=== PATIENT | female | born 1940 | race Caucasian/White ===

== ENCOUNTER → 2021-03-26 | Outpatient (CLI) | payer MEDICARE, MEDICAID ==
[2016-06-10 16:40] VITALS: BP 145/76
[~2021-03-26] MED LIST: CITALOPRAM20 MG PO; CLONIDINE0.1 MG PO; LISINOPRIL10 MG PO; LISINOPRIL20 MG PO; LOPRESSOR 550 MG/TAB PO; LOPRESSOR50 MG PO; MACRODANTIN100 M1 PO; METFORMIN PO; METFORMIN1000 MG PO; ST. JOSEPH81 M2 PO
[2021-03-26 09:21] LABS: URINE APPEARANCE HAZY; URINE BILIRUBIN NEGATIVE (NEGATIVE); URINE BLOOD TRACE (NEGATIVE); URINE COLOR YELLOW; URINE GLUCOSE NEGATIVE (NEGATIVE); URINE KETONE NEGATIVE (NEGATIVE); URINE LEUKOCYTE ESTERASE 2+ (NEGATIVE); URINE MUCUS PRESENT (NOT PRESENT); URINE NITRATE NEGATIVE (NEGATIVE); URINE PROTEIN(semi-quant) 1+ mg/dL (NEGATIVE); URINE UROBILINOGEN NORMAL (NORMAL)
== END ==
LOC: LAB 09:11
PROVIDERS: Family Medicine
DX: R82.90 Unspecified abnormal findings in urine (principal)

== ENCOUNTER → 2021-03-27 | Outpatient (CLI) | payer MEDICARE, MEDICAID ==
[2016-06-10 16:40] VITALS: BP 145/76
[2021-03-27 12:56] LABS: BASO # 0.03 (0.02-0.10); EOS % 1.3 % (1.0-5.0); HEMATOCRIT 38.5 % (37.0-47.0); HEMOGLOBIN 12.6 g/dL (12.5-16.0); LYMPH# 2.56 (1.50-4.00); MEAN CELL VOLUME 93 fl (78-100); MEAN CORPUSCULAR HEMOGLOBIN 30 pg (27-31); MEAN CORPUSCULAR HGB CONC 33 g/dL (33-37); MONO # 0.66 (0.20-0.80); NEU # 4.16 (1.40-6.50); PLATELET COUNT 173 K/mm3 (130-400); RED BLOOD COUNT 4.16 M/mm3 (4.10-5.30); RED CELL DISTRIBUTION WIDTH 12.8 % (11.5-14.5); WHITE BLOOD COUNT 7.5 K/mm3 (4.8-10.8)
[2021-03-27 13:08] LABS: ALBUMIN 4.3 g/dL (3.4-4.8); POTASSIUM 4.8 mmol/L (3.5-5.1)
[2021-03-27 13:09] LABS: CALCIUM 9.9 mg/dL (8.3-10.5)
[2021-03-27 13:11] LABS: TOTAL PROTEIN 7.2 g/dL (6.2-8.1)
[2021-03-27 13:13] LABS: TOTAL BILIRUBIN 0.5 mg/dL (0.2-1.2)
== END ==
LOC: LAB 12:35
PROVIDERS: Family Medicine
DX: E11.9 Type 2 diabetes mellitus without complications (principal); R42 Dizziness and giddiness

== ENCOUNTER 2021-04-04 14:00 | Outpatient (RCR) | payer MEDICARE, MEDICAID ==
[2016-06-10 16:40] VITALS: BP 145/76
== END 2021-04-04 17:00 ==
LOC: SPEECH 14:00
DX: G30.9 Alzheimer's disease, unspecified (principal); R13.10 Dysphagia, unspecified

== ENCOUNTER → 2021-04-11 | Outpatient (CLI) | payer MEDICARE, MEDICAID ==
[2016-06-10 16:40] VITALS: BP 145/76
== END ==
LOC: LAB 10:11
DX: R19.7 Diarrhea, unspecified (principal)

== ENCOUNTER → 2021-04-18 | Outpatient (CLI) | payer MEDICARE, MEDICAID ==
[2021-04-18 10:55] LABS: POTASSIUM 4.1 mmol/L (3.5-5.1)
[2021-04-18 10:57] LABS: CALCIUM 9.1 mg/dL (8.3-10.5)
== END ==
LOC: LAB 10:30
PROVIDERS: Family Medicine
DX: E11.9 Type 2 diabetes mellitus without complications (principal)

== ENCOUNTER 2021-11-25 10:48 | Emergency (ER) | payer MEDICARE, MEDICAID ==
[2021-11-25] MEDS ORDERED: ATORVASTATIN CA40 MG PO (11:06)
[2021-11-25] MEDS ORDERED: CARVEDILOL6.25 MG PO (11:06)
[2021-11-25] MEDS ORDERED: OLANZAPINE5 M3 PO (11:07)
[2021-11-25] MEDS ORDERED: ESCITALOPRAM20 MG PO (11:07)
[2021-11-25] MEDS ORDERED: LEVEMIR FLEX100 U/ML SQ (11:07)
[2021-11-25] MEDS ORDERED: CLOPIDOGREL75 M2 PO (11:07)
[2021-11-25 12:12] LABS: ALBUMIN 4.2 g/dL (3.4-4.8); POTASSIUM 4.2 mmol/L (3.5-5.1)
[2021-11-25 12:14] LABS: TOTAL PROTEIN 6.9 g/dL (6.2-8.1)
[2021-11-25 12:16] LABS: TOTAL BILIRUBIN 0.7 mg/dL (0.2-1.2)
[2021-11-25 12:21] LABS: BASO # 0.03 K/mm3 (0.02-0.10); EOS # 0.11 K/mm3 (0.04-0.40); EOS % 1.4 % (1.0-5.0); HEMATOCRIT 36.8 % (37.0-47.0); HEMOGLOBIN 11.9 g/dL (12.5-16.0); LYMPH# 1.65 K/mm3 (1.50-4.00); MEAN CELL VOLUME 95 fl (78-100); MEAN CORPUSCULAR HEMOGLOBIN 31 pg (27-31); MEAN CORPUSCULAR HGB CONC 32 g/dL (33-37); MEAN PLATELET VOLUME 11.5 fl (7.4-10.4); NEU # 5.39 K/mm3 (1.40-6.50); PLATELET COUNT 175 K/mm3 (130-400); RED BLOOD COUNT 3.89 M/mm3 (4.10-5.30); RED CELL DISTRIBUTION WIDTH 14.5 % (11.5-14.5); WHITE BLOOD COUNT 7.9 K/mm3 (4.8-10.8)
[2021-11-25 13:26] LABS: URINE APPEARANCE CLEAR; URINE BILIRUBIN NEGATIVE (NEGATIVE); URINE BLOOD NEGATIVE (NEGATIVE); URINE COLOR YELLOW; URINE GLUCOSE NEGATIVE (NEGATIVE); URINE KETONE NEGATIVE (NEGATIVE); URINE LEUKOCYTE ESTERASE NEGATIVE (NEGATIVE); URINE MUCUS PRESENT (NOT PRESENT); URINE NITRATE NEGATIVE (NEGATIVE); URINE PROTEIN(semi-quant) 2+ (NEGATIVE); URINE UROBILINOGEN NORMAL (NORMAL)
[2021-11-25] MEDS ORDERED: NYSTATIN POWDER30 GM TOP (14:49)
[2021-11-25 17:46] VITALS: BP 170/85
== END 2021-11-25 16:00 | disposition home or self-care (01) ==
LOC: ED 10:48
PROVIDERS: Nurse Practitioner
DX: B37.2 Candidiasis of skin and nail (principal); I12.9 Hypertensive chronic kidney disease with stage 1 through stage 4 chronic kidney disease, or unspecified chronic kidney disease; N18.4 Chronic kidney disease, stage 4 (severe); F41.9 Anxiety disorder, unspecified; G30.9 Alzheimer's disease, unspecified; E11.22 Type 2 diabetes mellitus with diabetic chronic kidney disease; Z79.899 Other long term (current) drug therapy; Z79.02 Long term (current) use of antithrombotics/antiplatelets; Z79.4 Long term (current) use of insulin
CPT/HCPCS: J7040

== ENCOUNTER → 2022-03-27 | Outpatient (CLI) | payer MEDICARE, MEDICAID ==
[~2022-03-27] MED LIST changes: +ATORVASTATIN CA40 MG PO; +CARVEDILOL6.25 MG PO; +CLOPIDOGREL75 M2 PO; +ESCITALOPRAM20 MG PO; +LEVEMIR FLEX100 U/ML SQ; +NYSTATIN POWDER30 GM TOP; +OLANZAPINE5 M3 PO
[2022-03-27 10:29] LABS: ALBUMIN 4.1 g/dL (3.4-4.8); POTASSIUM 4.6 mmol/L (3.5-5.1)
[2022-03-27 10:31] LABS: CALCIUM 9.7 mg/dL (8.3-10.5)
[2022-03-27 10:32] LABS: TOTAL PROTEIN 7.1 g/dL (6.2-8.1)
[2022-03-27 10:34] LABS: TOTAL BILIRUBIN 0.4 mg/dL (0.2-1.2)
== END ==
LOC: LAB 09:51
PROVIDERS: Family Medicine
DX: I12.9 Hypertensive chronic kidney disease with stage 1 through stage 4 chronic kidney disease, or unspecified chronic kidney disease (principal); E11.22 Type 2 diabetes mellitus with diabetic chronic kidney disease; N18.4 Chronic kidney disease, stage 4 (severe); Z86.73 Personal history of transient ischemic attack (TIA), and cerebral infarction without residual deficits; E78.00 Pure hypercholesterolemia, unspecified

== ENCOUNTER 2022-05-06 13:05 | Observation (INO) | payer MEDICARE, MEDICAID ==
[~2022-05-06] VITALS: Ht 167.6 cm; Wt 82.1 kg
[2022-05-06] MEDS ORDERED: OLANZAPINE2.5 M1 PO (14:29)
[2022-05-06] MEDS ORDERED: LEVEMIR FLEX100 U/ML SQ (14:29)
[2022-05-06] MEDS ORDERED: CARVEDILOL3.125 MG PO (14:31)
[2022-05-06] MEDS ORDERED: CLONAZEPAM0.5 M1 PO (14:32)
[2022-05-06 14:37] LABS: BASO # 0.03 K/mm3 (0.02-0.10); EOS # 0.15 K/mm3 (0.04-0.40); EOS % 2.1 % (1.0-5.0); HEMATOCRIT 38.1 % (37.0-47.0); HEMOGLOBIN 12.4 g/dL (12.5-16.0); LYMPH# 2.67 K/mm3 (1.50-4.00); MEAN CELL VOLUME 91 fl (78-100); MEAN CORPUSCULAR HEMOGLOBIN 30 pg (27-31); MEAN CORPUSCULAR HGB CONC 33 g/dL (33-37); MEAN PLATELET VOLUME 10.5 fl (7.4-10.4); MONO # 0.66 K/mm3 (0.20-0.80); NEU # 3.68 K/mm3 (1.40-6.50); PLATELET COUNT 183 K/mm3 (130-400); RED CELL DISTRIBUTION WIDTH 13.7 % (11.5-14.5); WHITE BLOOD COUNT 7.2 K/mm3 (4.8-10.8)
[2022-05-06 14:49] LABS: ALBUMIN 4.2 g/dL (3.4-4.8); POTASSIUM 4.8 mmol/L (3.5-5.1); SODIUM 140 mmol/L (136-145)
[2022-05-06 14:50] LABS: CALCIUM 9.8 mg/dL (8.3-10.5)
[2022-05-06 14:51] LABS: GLUCOSE 147 mg/dL (65-105)
[2022-05-06 14:52] LABS: TOTAL PROTEIN 7.1 g/dL (6.2-8.1)
[2022-05-06 14:53] LABS: CARBON DIOXIDE 23 mmol/L (23-31); TOTAL BILIRUBIN 0.5 mg/dL (0.2-1.2)
[2022-05-06 14:57] LABS: AST-SGOT 18 U/L (5-34)
[2022-05-06 14:58] LABS: ALT/SGPT 11 U/L (0-55)
[2022-05-06 15:05] LABS: TROPONIN-I < 0.030 ng/mL (<0.030)
[2022-05-06 15:40] LABS: URINE APPEARANCE CLEAR; URINE BILIRUBIN NEGATIVE (NEGATIVE); URINE BLOOD TRACE (NEGATIVE); URINE COLOR YELLOW; URINE GLUCOSE NEGATIVE (NEGATIVE); URINE KETONE NEGATIVE (NEGATIVE); URINE LEUKOCYTE ESTERASE 2+ (NEGATIVE); URINE NITRATE NEGATIVE (NEGATIVE); URINE PROTEIN(semi-quant) 1+ (NEGATIVE); URINE UROBILINOGEN NORMAL (NORMAL)
[2022-05-06 15:41] LABS: URINE MUCUS PRESENT (NOT PRESENT)
[2022-05-06 17:00] VITALS: BP 188/82
[2022-05-06 18:13] VITALS: BP 154/77
[2022-05-06 21:42] VITALS: BP 171/73
[2022-05-07 06:47] VITALS: BP 161/90
[2022-05-07 07:22] LABS: BASO # 0.03 K/mm3 (0.02-0.10); EOS # 0.15 K/mm3 (0.04-0.40); EOS % 2.2 % (1.0-5.0); HEMATOCRIT 38.3 % (37.0-47.0); HEMOGLOBIN 12.5 g/dL (12.5-16.0); LYMPH# 2.62 K/mm3 (1.50-4.00); MEAN CELL VOLUME 91 fl (78-100); MEAN CORPUSCULAR HEMOGLOBIN 30 pg (27-31); MEAN CORPUSCULAR HGB CONC 33 g/dL (33-37); MEAN PLATELET VOLUME 10.8 fl (7.4-10.4); MONO # 0.71 K/mm3 (0.20-0.80); NEU # 3.24 K/mm3 (1.40-6.50); PLATELET COUNT 176 K/mm3 (130-400); RED CELL DISTRIBUTION WIDTH 13.9 % (11.5-14.5); WHITE BLOOD COUNT 6.8 K/mm3 (4.8-10.8)
[2022-05-07 07:30] LABS: ALBUMIN 3.9 g/dL (3.4-4.8)
[2022-05-07 07:31] LABS: POTASSIUM 4.7 mmol/L (3.5-5.1)
[2022-05-07 07:32] LABS: CALCIUM 9.5 mg/dL (8.3-10.5)
[2022-05-07 07:33] LABS: TOTAL PROTEIN 6.7 g/dL (6.2-8.1)
[2022-05-07 07:35] LABS: TOTAL BILIRUBIN 0.5 mg/dL (0.2-1.2)
[2022-05-07 10:00] VITALS: BP 147/83
[2022-05-07] MEDS ORDERED: CEPHALEXIN500 M2 PO (13:03)
[2022-05-07 13:24] VITALS: BP 147/83
== END 2022-05-07 13:45 ==
LOC: ED 13:05 → MED/SURG 17:04
PROVIDERS: Internal Medicine; ADMIT Physician Assistant
DX: R45.1 Restlessness and agitation (principal); F30.9 Manic episode, unspecified; E11.22 Type 2 diabetes mellitus with diabetic chronic kidney disease; I12.9 Hypertensive chronic kidney disease with stage 1 through stage 4 chronic kidney disease, or unspecified chronic kidney disease; N39.0 Urinary tract infection, site not specified; N18.9 Chronic kidney disease, unspecified; Z79.4 Long term (current) use of insulin
CPT/HCPCS: G0378; J0696; J1815

== ENCOUNTER 2022-05-20 21:00 | Observation (INO) | payer MEDICARE, MEDICAID ==
[~2022-05-20] VITALS: Ht 167.6 cm; Wt 76.6 kg
[~2022-05-20 21:00] MED LIST changes: +CARVEDILOL3.125 MG PO; +CEPHALEXIN500 M2 PO; +CLONAZEPAM0.5 M1 PO; +OLANZAPINE2.5 M1 PO
[2022-05-20 23:05] LABS: BASO # 0.04 K/mm3 (0.02-0.10); EOS # 0.17 K/mm3 (0.04-0.40); HEMATOCRIT 36.1 % (37.0-47.0); HEMOGLOBIN 11.7 g/dL (12.5-16.0); LYMPH# 2.87 K/mm3 (1.50-4.00); MEAN CELL VOLUME 93 fl (78-100); MEAN CORPUSCULAR HEMOGLOBIN 30 pg (27-31); MEAN CORPUSCULAR HGB CONC 32 g/dL (33-37); MEAN PLATELET VOLUME 10.9 fl (7.4-10.4); MONO # 0.86 K/mm3 (0.20-0.80); NEU # 4.74 K/mm3 (1.40-6.50); PLATELET COUNT 183 K/mm3 (130-400); RED BLOOD COUNT 3.89 M/mm3 (4.10-5.30); RED CELL DISTRIBUTION WIDTH 14.2 % (11.5-14.5); WHITE BLOOD COUNT 8.7 K/mm3 (4.8-10.8)
[2022-05-20 23:15] LABS: POTASSIUM 4.4 mmol/L (3.5-5.1); SODIUM 139 mmol/L (136-145)
[2022-05-20 23:16] LABS: CALCIUM 9.7 mg/dL (8.3-10.5)
[2022-05-20 23:17] LABS: GLUCOSE 142 mg/dL (65-105); TOTAL PROTEIN 7.2 g/dL (6.2-8.1)
[2022-05-20 23:18] LABS: CARBON DIOXIDE 23 mmol/L (23-31)
[2022-05-20 23:19] LABS: TOTAL BILIRUBIN 0.7 mg/dL (0.2-1.2)
[2022-05-20 23:22] LABS: AST-SGOT 18 U/L (5-34)
[2022-05-20 23:24] LABS: ACETAMINOPHEN < 1 ug/mL; ALCOHOL IN-HOUSE < 10 mg/dL (<10); ALT/SGPT < 6 U/L (0-55)
[2022-05-21] MEDS ORDERED: RISPERIDONE1 M2 PO (00:56)
[2022-05-21 09:38] LABS: URINE APPEARANCE CLOUDY; URINE COLOR YELLOW
[2022-05-21 09:39] LABS: URINE BILIRUBIN NEGATIVE (NEGATIVE); URINE BLOOD TRACE (NEGATIVE); URINE GLUCOSE NEGATIVE (NEGATIVE); URINE KETONE NEGATIVE (NEGATIVE); URINE LEUKOCYTE ESTERASE 2+ (NEGATIVE); URINE MUCUS PRESENT (NOT PRESENT); URINE NITRATE NEGATIVE (NEGATIVE); URINE PROTEIN(semi-quant) 1+ (NEGATIVE); URINE UROBILINOGEN NORMAL (NORMAL); URINE WBC >50 /hpf (0-3)
[2022-05-21 15:58] VITALS: BP 93/58
[2022-05-21 16:01] VITALS: BP 92/57
[2022-05-21 17:46] VITALS: BP 93/58
[2022-05-21 23:16] VITALS: BP 109/66
[2022-05-22 06:47] VITALS: BP 152/75
[2022-05-22 09:32] VITALS: BP 126/69
[2022-05-22 14:11] VITALS: BP 107/67
[2022-05-22 18:25] VITALS: BP 94/60
[2022-05-22 21:05] VITALS: BP 162/78
[2022-05-23 06:22] VITALS: BP 103/63
[2022-05-23 10:32] VITALS: BP 116/70
[2022-05-23 14:09] VITALS: BP 128/74
[2022-05-23 17:03] VITALS: BP 150/79
[2022-05-23 21:43] VITALS: BP 147/77
[2022-05-24 05:20] VITALS: BP 116/75
[2022-05-24 09:43] VITALS: BP 142/83
[2022-05-24 13:18] VITALS: BP 152/61
[2022-05-24 17:25] VITALS: BP 127/73
[2022-05-24 21:11] VITALS: BP 119/69
[2022-05-25 05:21] VITALS: BP 155/80
[2022-05-25 06:45] LABS: URINE APPEARANCE CLEAR; URINE BILIRUBIN NEGATIVE (NEGATIVE); URINE BLOOD NEGATIVE (NEGATIVE); URINE COLOR YELLOW; URINE GLUCOSE NEGATIVE (NEGATIVE); URINE KETONE NEGATIVE (NEGATIVE); URINE LEUKOCYTE ESTERASE NEGATIVE (NEGATIVE); URINE NITRATE NEGATIVE (NEGATIVE); URINE PROTEIN(semi-quant) NEGATIVE (NEGATIVE); URINE UROBILINOGEN NORMAL (NORMAL); URINE WBC 0-1 /hpf (0-3)
[2022-05-25 09:21] VITALS: BP 115/72
[2022-05-25 13:51] VITALS: BP 110/69
[2022-05-25 17:56] VITALS: BP 104/59
[2022-05-26 06:00] VITALS: BP 135/68
[2022-05-26 09:47] VITALS: BP 144/78
[2022-05-26 13:46] VITALS: BP 116/72
[2022-05-26 17:34] VITALS: BP 90/56
[2022-05-26 17:55] VITALS: BP 98/52
[2022-05-26 21:40] VITALS: BP 133/73
[2022-05-27 05:47] VITALS: BP 132/75
[2022-05-27 09:17] VITALS: BP 98/54
[2022-05-27 11:32] LABS: BASO # 0.04 K/mm3 (0.02-0.10); EOS # 0.38 K/mm3 (0.04-0.40); HEMATOCRIT 34.6 % (37.0-47.0); HEMOGLOBIN 11.1 g/dL (12.5-16.0); LYMPH# 1.91 K/mm3 (1.50-4.00); MEAN CELL VOLUME 94 fl (78-100); MEAN CORPUSCULAR HEMOGLOBIN 30 pg (27-31); MEAN CORPUSCULAR HGB CONC 32 g/dL (33-37); MEAN PLATELET VOLUME 10.7 fl (7.4-10.4); MONO # 0.77 K/mm3 (0.20-0.80); PLATELET COUNT 182 K/mm3 (130-400); RED BLOOD COUNT 3.69 M/mm3 (4.10-5.30); RED CELL DISTRIBUTION WIDTH 14.4 % (11.5-14.5); WHITE BLOOD COUNT 7.6 K/mm3 (4.8-10.8)
[2022-05-27 11:50] LABS: ALBUMIN 3.7 g/dL (3.4-4.8); POTASSIUM 5.5 mmol/L (3.5-5.1)
[2022-05-27 11:51] LABS: CALCIUM 9.2 mg/dL (8.3-10.5)
[2022-05-27 11:52] LABS: TOTAL PROTEIN 6.4 g/dL (6.2-8.1)
[2022-05-27 11:54] LABS: TOTAL BILIRUBIN 0.4 mg/dL (0.2-1.2)
[2022-05-27 13:35] VITALS: BP 106/68
[2022-05-27 14:22] LABS: POTASSIUM 5.3 mmol/L (3.5-5.1)
[2022-05-27 14:23] LABS: CALCIUM 9.3 mg/dL (8.3-10.5)
[2022-05-27 16:38] VITALS: BP 117/66
[2022-05-28 05:53] VITALS: BP 115/66
[2022-05-28 07:59] LABS: POTASSIUM 4.9 mmol/L (3.5-5.1)
[2022-05-28 09:43] VITALS: BP 96/60
[2022-05-28] MEDS ORDERED: OLANZAPINE2.5 M1 PO (13:00)
[2022-05-28] MEDS ORDERED: LISINOPRIL10 MG PO (13:00)
[2022-05-28] MEDS ORDERED: LEVEMIR FLEX100 U/ML SQ ×2 (13:00)
[2022-05-28] MEDS ORDERED: ESCITALOPRAM20 MG PO (13:00)
[2022-05-28] MEDS ORDERED: CLOPIDOGREL75 M2 PO (13:00)
[2022-05-28] MEDS ORDERED: ATORVASTATIN CA40 MG PO (13:00)
[2022-05-28] MEDS ORDERED: CARVEDILOL3.125 MG PO (13:00)
[2022-05-28] MEDS ORDERED: CLONAZEPAM0.5 M1 PO (13:00)
[2022-05-28] MEDS ORDERED: ACETAMINOPHEN500 M5 PO (13:00)
[2022-05-28 13:56] VITALS: BP 118/68
[2022-05-28 17:02] VITALS: BP 102/65
[2022-05-29 06:04] VITALS: BP 161/79
[2022-05-29 09:21] VITALS: BP 120/76
[2022-05-29 13:49] VITALS: BP 120/72
[2022-05-29 17:25] VITALS: BP 125/72
[2022-05-29 20:56] VITALS: BP 129/69
[2022-05-30 05:28] VITALS: BP 138/70
[2022-05-30 10:16] VITALS: BP 133/69
[2022-05-30 14:16] VITALS: BP 111/64
[2022-05-30 17:51] VITALS: BP 121/72
[2022-05-31 05:42] VITALS: BP 149/73
[2022-05-31 10:12] VITALS: BP 110/64
[2022-05-31 14:02] VITALS: BP 98/56
[2022-05-31 18:00] VITALS: BP 99/64
[2022-05-31 22:00] VITALS: BP 120/70
[2022-06-01 05:16] VITALS: BP 120/71
[2022-06-01 10:06] VITALS: BP 97/62
[2022-06-01 14:29] VITALS: BP 107/66
[2022-06-01 17:47] VITALS: BP 111/69
[2022-06-01 22:00] VITALS: BP 117/69
[2022-06-02 05:35] VITALS: BP 146/72
[2022-06-02 09:10] VITALS: BP 128/76
[2022-06-02 14:08] VITALS: BP 124/76
[2022-06-02 17:32] VITALS: BP 162/82
[2022-06-02 22:02] VITALS: BP 127/68
[2022-06-03 05:20] VITALS: BP 135/74
[2022-06-03 05:21] VITALS: BP 135/74
[2022-06-03 06:00] VITALS: BP 135/74
[2022-06-03 16:02] VITALS: BP 127/76
[2022-06-04 05:09] VITALS: BP 132/69
[2022-06-04 17:21] VITALS: BP 143/80
[2022-06-05 05:00] VITALS: BP 142/75
[2022-06-05 17:26] VITALS: BP 124/74
[2022-06-06 05:55] VITALS: BP 128/73
[2022-06-06 17:04] VITALS: BP 120/74
[2022-06-07 05:39] VITALS: BP 124/74
[2022-06-07 17:53] VITALS: BP 130/80
[2022-06-08 05:39] VITALS: BP 129/75
[2022-06-08 17:05] VITALS: BP 142/58
[2022-06-09 05:53] VITALS: BP 166/76
[2022-06-09 09:26] VITALS: BP 97/61
[2022-06-09 16:56] VITALS: BP 109/67
[2022-06-09 17:40] VITALS: BP 124/59
[2022-06-10 05:16] VITALS: BP 150/69
[2022-06-10 17:29] VITALS: BP 122/75
[2022-06-11 05:10] VITALS: BP 153/72
[2022-06-11 16:00] VITALS: BP 153/72
[2022-06-12 05:36] VITALS: BP 153/65
[2022-06-12 18:19] VITALS: BP 99/65
[2022-06-13 05:39] VITALS: BP 130/61
[2022-06-13 17:11] VITALS: BP 114/72
[2022-06-14 05:39] VITALS: BP 158/73
[2022-06-14 07:29] LABS: BASO # 0.04 K/mm3 (0.02-0.10); EOS % 4.7 % (1.0-5.0); HEMATOCRIT 37.3 % (37.0-47.0); LYMPH# 2.67 K/mm3 (1.50-4.00); MEAN CELL VOLUME 94 fl (78-100); MEAN CORPUSCULAR HEMOGLOBIN 30 pg (27-31); MEAN CORPUSCULAR HGB CONC 32 g/dL (33-37); MEAN PLATELET VOLUME 11.1 fl (7.4-10.4); MONO # 0.53 K/mm3 (0.20-0.80); NEU # 2.87 K/mm3 (1.40-6.50); PLATELET COUNT 166 K/mm3 (130-400); RED BLOOD COUNT 3.98 M/mm3 (4.10-5.30); RED CELL DISTRIBUTION WIDTH 14.6 % (11.5-14.5); WHITE BLOOD COUNT 6.4 K/mm3 (4.8-10.8)
[2022-06-14 07:52] LABS: ALBUMIN 3.8 g/dL (3.4-4.8); POTASSIUM 4.5 mmol/L (3.5-5.1)
[2022-06-14 07:53] LABS: CALCIUM 9.4 mg/dL (8.3-10.5)
[2022-06-14 07:54] LABS: TOTAL PROTEIN 6.3 g/dL (6.2-8.1)
[2022-06-14 07:56] LABS: TOTAL BILIRUBIN 0.5 mg/dL (0.2-1.2)
[2022-06-14 17:35] VITALS: BP 113/73
[2022-06-15 06:08] VITALS: BP 158/78
[2022-06-15 17:25] VITALS: BP 147/84
[2022-06-16 06:03] VITALS: BP 149/72
[2022-06-16 17:29] VITALS: BP 132/78
[2022-06-17 05:33] VITALS: BP 146/72
[2022-06-17 16:15] VITALS: BP 147/77
[2022-06-18 05:30] VITALS: BP 115/70
[2022-06-18 17:13] VITALS: BP 117/72
[2022-06-19 05:55] VITALS: BP 158/77
[2022-06-19 17:18] VITALS: BP 128/78
[2022-06-20 06:06] VITALS: BP 172/77
[2022-06-20 18:34] VITALS: BP 114/71
[2022-06-21 05:59] VITALS: BP 155/68
[2022-06-21 18:42] VITALS: BP 104/69
[2022-06-22 06:10] VITALS: BP 161/75
[2022-06-22 17:27] VITALS: BP 145/80
[2022-06-23 05:45] VITALS: BP 154/70
== END 2022-06-23 10:14 ==
LOC: ED 21:00 → MED/SURG 05-21 13:51
PROVIDERS: Family Medicine; Nurse Practitioner; ADMIT Physician Assistant
DX: R45.1 Restlessness and agitation (principal); F31.9 Bipolar disorder, unspecified; N39.0 Urinary tract infection, site not specified; I12.9 Hypertensive chronic kidney disease with stage 1 through stage 4 chronic kidney disease, or unspecified chronic kidney disease; E11.22 Type 2 diabetes mellitus with diabetic chronic kidney disease; E87.5 Hyperkalemia; N18.4 Chronic kidney disease, stage 4 (severe); Z79.4 Long term (current) use of insulin; Z66 Do not resuscitate
CPT/HCPCS: G0378; J0696; J1815